=== PATIENT | male | born 1975 | race Two or more races ===

== ENCOUNTER 2024-04-11 14:57 | Inpatient (IN) | payer OTHER ==
[~2024-04-11] VITALS: Ht 165.1 cm; Wt 67.6 kg
[2024-04-11] MEDS ORDERED: HYDRALAZINE HC100 MG PO (15:18)
[2024-04-11] MEDS ORDERED: NIFEDIPINE20 MG PO (15:19)
--- NOTE | 2024-04-11 15:24 | NUR ---
SE RECIBE PTE MASCULINO ALERTA Y ORIENTADO EN [place] ESFER[place] REFIERE DIFICULTAD PARA RESPIRAR, TOS Y DIFICULTAD PARA DORMIR. AL MOMENTO DE TRIAGE PTE CON BP MANUAL 180/100MMHG, PTE RENAL CON HX DE DIALISIS DE 5 VECES EN SEMANA. SE REALIZA EKG Y SE UBICA.
[2024-04-11] MEDS ORDERED: FAMOtidine 10 MG/ML (4ML VIAL) IV ONE (16:45)
[2024-04-11] MEDS ORDERED: DICYCLOMINE HCL 20 MG TABLET PO ONE (16:45)
[2024-04-11] MEDS ORDERED: 0.9 % SODIUM CHLORIDE 1,000 ML IV ONE (16:45)
[2024-04-11] MEDS ORDERED: CEFTRIAXONE SODIUM 1,000 MG VIAL IV ONE (16:45)
[2024-04-11] MEDS ORDERED: DICYCLOMINE HCL 10 MG CAPSULE PO ONE (18:03)
[2024-04-11] MEDS ORDERED: FAMOTIDINE/PF 20 MG/2 ML VIAL ONE (18:03)
[2024-04-11 18:25] LABS: HEMATOCRIT 42.3 % (39.0-48.0); HEMOGLOBIN 13.7 g/dL (13-16.00); MEAN CELL VOLUME 85.4 fL (80.0-100.00); MEAN CORPUSCULAR HEMOGLOBIN 27.7 pg (27.00-32.0); MEAN CORPUSCULAR HGB CONC 32.4 g/dl (32.0-36.0); PLATELET COUNT 264 K/uL (150-450); RED BLOOD COUNT 4.96 M/uL (4.00-6.00); RED CELL DISTRIBUTION WIDTH 18.3 % (11.5-14.5)
[2024-04-11 18:37] LABS: ABG PH 7.469 (7.35-7.45); ABG pCO2 31.7 mmHg (35-45); BASE EXCESS -0.3 mmol/l; BICARBONATE 22.5 mmol/l (23-25); SaO2 97.6 %; Tco2 23.4 mmol/l; allen test SATISFACTORY; o2 21 %; puncture site RADIAL RIGHT
--- NOTE | 2024-04-11 18:47 | NUR ---
PTE ALERTA Y ORIENTADO X3 ES EVALUADO POR LA DRA. FERNANDO. SE ORINETA SOBRE TRATAMIENTO, VERBALIZA ENTENDER. SE CANALIZA, SE SERGEI MUESTRAS DE LAB Y SE ADMINISTRA MEDICAMENTO BRIGIDO ORDEN MEDICA BAJO MEDIDAS ASEPTICAS. SE NOTIFICA XRAY Y CT PENDIENTE.
[2024-04-11 18:55] LABS: ALBUMIN 3.9 gm/dL (3.4-5.0); BILIRUBIN TOTAL 0.5 mg/dL (0.3-1.2); CALCIUM 9.7 mg/dL (8.5-10.1); GFR 5.11; GLOBULINA 3.8 G/DL (2.4-3.5); POTASSIUM 5.34 mEq/L (3.5-5.1); TOTAL PROTEIN 7.7 gm/dL (6.4-8.2)
[2024-04-11 19:25] LABS: CREATININE SERUM 10.7 mg/dL (0.70-1.30)
[2024-04-11] MEDS ORDERED: ONDANSETRON HCL 4 MG in 0.9 % SODIUM CHLORIDE 50 ML IV PRN (23:15)
[2024-04-11] MEDS ORDERED: ACETAMINOPHEN 650 MG SUPP.RECT RECTAL PRN (23:15)
[2024-04-12] VITALS (8 sets, daily range): BP systolic 190–205; BP diastolic 99–121; O2SAT 90–99
[2024-04-12] MEDS ORDERED: hydrALAZINE HCL 20 MG VIAL IV PRN (06:30)
[2024-04-12 08:38] LABS: ALBUMIN 3.4 gm/dL (3.4-5.0); BILIRUBIN TOTAL 0.47 mg/dL (0.3-1.2); BILIRUBIN,CONJUGATED 0.16 mg/dL (0.0-0.2); BILIRUBIN,UNCONJUGATED 0.31 mg/dL (0.0-0.6); MAGNESIUM 2.7 mg/dL (1.8-2.4); PHOSPHOROUS 8.6 mg/dL (2.5-4.9); TOTAL PROTEIN 6.6 gm/dL (6.4-8.2)
[2024-04-12 08:44] LABS: INR 1.08; PARTIAL THROMBOPLASTIN TIME 25.9 SECONDS (22.0-34.0); PROTHROMBIN TIME 11.7 SECONDS (9.0-11.5)
[2024-04-12] MEDS ORDERED: hydrALAZINE HCL 50 MG TABLET PO SCH ×2 (09:00)
[2024-04-12] MEDS ORDERED: FAMOTIDINE/PF 20 MG/2 ML VIAL IV SCH (09:00)
[2024-04-12] MEDS ORDERED: IRBESARTAN 150 MG TABLET PO SCH (09:00)
[2024-04-12] MEDS ORDERED: NIFEDIPINE 90 MG TAB.SA.OSM PO SCH (09:00)
[2024-04-12] MEDS ORDERED: NIFEDIPINE 60 MG TAB.SA.OSM PO SCH (17:00)
[2024-04-12] MEDS ORDERED: HEPARIN SODIUM,PORCINE 5,000 UNITS/ML VIAL ONE (17:08)
[2024-04-12] MEDS ORDERED: DOXAZOSIN MESYLATE 4 MG TABLET PO SCH (21:00)
[2024-04-13 00:41] VITALS: O2SAT 96
[2024-04-13 06:28] LABS: HEMATOCRIT 34.6 % (39.0-48.0); HEMOGLOBIN 11.5 g/dL (13-16.00); MEAN CELL VOLUME 84.2 fL (80.0-100.00); MEAN CORPUSCULAR HEMOGLOBIN 27.9 pg (27.00-32.0); MEAN CORPUSCULAR HGB CONC 33.2 g/dl (32.0-36.0); PLATELET COUNT 207 K/uL (150-450); RED BLOOD COUNT 4.11 M/uL (4.00-6.00); RED CELL DISTRIBUTION WIDTH 18.3 % (11.5-14.5)
[2024-04-13 07:28] LABS: ALBUMIN 3.2 gm/dL (3.4-5.0); BILIRUBIN TOTAL 0.41 mg/dL (0.3-1.2); GFR 4.39; GLOBULINA 2.7 G/DL (2.4-3.5); POTASSIUM 4.62 mEq/L (3.5-5.1); TOTAL PROTEIN 5.9 gm/dL (6.4-8.2)
[2024-04-13 07:56] LABS: CREATININE SERUM 12.2 mg/dL (0.70-1.30)
[2024-04-13] MEDS ORDERED: ENOXAPARIN SODIUM 30 MG/0.3 ML SYRINGE SUBCUTANEO SCH (09:00)
[2024-04-13] MEDS ORDERED: IRBESARTAN 300 MG TABLET PO SCH (09:00)
[2024-04-13 10:01] VITALS: BP 120/80; O2SAT 99
[2024-04-14 06:04] LABS: hav igm Negative (Negative); hcv Non Reactive (Non Reactive); hep b c Negative (Negative); hep b s ag Negative (Negative)
== END 2024-04-13 13:13 | disposition home or self-care (01) | DRG 291 ==
LOC: ER 14:59 → MEDJ 23:26
PROVIDERS: General Practice; Internal Medicine Nephrology; Internal Medicine Pulmonary Disease; ADMIT Internal Medicine; ATTEND Internal Medicine
PROC: BW21ZZZ Computerized Tomography (CT Scan) of Abdomen and Pelvis (ICD-10-PCS; principal; 2024-04-11)
PROC: BB24ZZZ Computerized Tomography (CT Scan) of Bilateral Lungs (ICD-10-PCS; 2024-04-11)
PROC: B246ZZZ Ultrasonography of Right and Left Heart (ICD-10-PCS; 2024-04-11)
PROC: 4A12X4Z Monitoring of Cardiac Electrical Activity, External Approach (ICD-10-PCS; 2024-04-12)
DX: I13.2 Hypertensive heart and chronic kidney disease with heart failure and with stage 5 chronic kidney disease, or end stage renal disease (principal); N18.6 End stage renal disease; N17.8 Other acute kidney failure; I50.89 Other heart failure; Z99.2 Dependence on renal dialysis; Z72.0 Tobacco use; R06.09 Other forms of dyspnea